=== PATIENT | male | born 2000 | race Caucasian/White ===

== ENCOUNTER → 2023-08-11 | Outpatient (CLI) | payer BC | LOC: RAD 14:23 | DX: K82.8 Other specified diseases of gallbladder (principal) ==

== ENCOUNTER 2024-03-03 18:09 | Emergency (ER) | payer BC ==
[~2024-03-03] VITALS: Ht 182.9 cm; Wt 92.3 kg
[2024-03-03] MEDS ORDERED: DAILY VALUE1 EACH PO (18:30)
[2024-03-03] MEDS ORDERED: Lidocaine 1% (10 MG/ML) 10 ML Multi-Dose IJ ONE (18:40)
[2024-03-03] MEDS ORDERED: Ketorolac 30 MG/ML VIAL IM ONE (19:00)
[2024-03-03 19:46] VITALS: BP 127/84
== END 2024-03-03 19:47 | disposition home or self-care (01) ==
LOC: ED 18:09
DX: S92.511A Displaced fracture of proximal phalanx of right lesser toe(s), initial encounter for closed fracture (principal); W22.8XXA Striking against or struck by other objects, initial encounter
CPT/HCPCS: J1885